=== PATIENT | male | born 1955 | race Caucasian/White ===

== ENCOUNTER 2023-07-19 14:45 | Emergency (ER) | payer OTHER, MEDICAID ==
[~2023-07-19] VITALS: Ht 182.8 cm; Wt 90.7 kg
[~2023-07-19 14:45] MED LIST: BACTRIM DS 8001 TA1 PO; BP MED; LOTRISONE 0.05%1 CRE TP; PERCOCET 325 MG1 TA7 PO
== END 2023-07-19 17:50 | disposition left against medical advice (07) ==
LOC: ED 14:45
DX: M54.50 Low back pain, unspecified (principal); M25.562 Pain in left knee; M25.512 Pain in left shoulder; M25.551 Pain in right hip; M25.552 Pain in left hip; I10 Essential (primary) hypertension; Z96.641 Presence of right artificial hip joint; V43.52XA Car driver injured in collision with other type car in traffic accident, initial encounter; Y93.I9 Activity, other involving external motion; Y92.89 Other specified places as the place of occurrence of the external cause; Y99.8 Other external cause status

== ENCOUNTER 2023-10-30 13:07 | Emergency (ER) | payer OTHER, MEDICAID ==
[~2023-10-30] VITALS: Ht 233.6 cm; Wt 90.7 kg
[2023-10-30] MEDS ORDERED: LIDOCAINE 1 EA PATCH T ONE (15:00)
[2023-10-30] MEDS ORDERED: Dexamethasone Sodium Phospha 20 MG/5 ML VIAL IM ONE (15:00)
[2023-10-30] MEDS ORDERED: Ketorolac Tromethamine 30 MG/ML VIAL IM ONE (15:00)
[2023-10-30] MEDS ORDERED: CYCLOBENZAPRINE5 M3 PO (15:10)
[2023-10-30] MEDS ORDERED: PAIN RELIEF PA1 EACH T (15:10)
[2023-10-30] MEDS ORDERED: PREDNISONE50 MG PO (15:10)
== END 2023-10-30 15:28 | disposition home or self-care (01) ==
LOC: ED 13:07
DX: M62.830 Muscle spasm of back (principal); M25.551 Pain in right hip; I10 Essential (primary) hypertension; Z98.890 Other specified postprocedural states